=== PATIENT | male | born 1965 | race Two or more races ===

== ENCOUNTER 2020-06-30 12:23 | Emergency (ER) | payer MEDICAID ==
[~2020-06-30] VITALS: Ht 170.2 cm; Wt 88.5 kg
[2020-06-30] MEDS ORDERED: DILANTIN (12:29)
[2020-06-30] MEDS ORDERED: IV NORMAL SALINE 1000 ML BAG IV ONE (12:30)
[2020-06-30] MEDS ORDERED: LORAZEPAM 2 MG/1 ML VIAL IV ONE (12:30)
[2020-06-30] MEDS ORDERED: LORAZEPAM 2 MG/1 ML VIAL ONE (12:41)
[2020-06-30 13:02] LABS: BASOPHILS % (AUTO) 0.3 % (0.0-2.0); EOSINOPHILS # (AUTO) 0.1 K/uL (0.0-0.7); EOSINOPHILS % (AUTO) 1.2 % (0.0-7.0); HEMATOCRIT 44.6 % (36.7-47.1); HEMOGLOBIN 15.1 g/dL (12.5-16.3); LYMPHOCYTES # (AUTO) 1.5 K/uL (20.0-40.0); LYMPHOCYTES % (AUTO) 16.7 % (20.5-51.5); MEAN CORPUSCULAR HEMOGLOBIN 31.5 uug (23.8-33.4); MEAN CORPUSCULAR HGB CONC 34 g/dL (32.5-36.3); MEAN CORPUSCULAR VOLUME 92.9 fL (73.0-96.2); MONOCYTES # (AUTO) 0.6 K/uL (2.0-10.0); NEUTROPHILS # (AUTO) 6.8 K/uL (1.8-8.9); NEUTROPHILS % (AUTO) 74.8 % (38.5-71.5); PLATELET COUNT (AUTO) 284 K/uL (152-348); WHITE BLOOD COUNT (AUTO) 9.2 K/uL (3.6-10.2)
[2020-06-30 13:11] LABS: CARBON DIOXIDE 25 mmol/L (21-32); CHLORIDE 106 mmol/L (98-107); CREATININE 0.9 mg/dL (0.6-1.3); GLUCOSE 99 mg/dL (74-106); POTASSIUM 4.1 mmol/L (3.5-5.1); UREA NITROGEN, BLOOD 18 mg/dL (7-18)
[2020-06-30 13:16] LABS: PHENYTOIN (DILANTIN) 20.3 ug/mL (10.0-20.0); VALPROIC ACID 11 ug/mL (50-100)
--- NOTE | 2020-06-30 13:16 | NUR ---
PT IS IN ROOM #1B. DR KIMBALL EVALUATED THE PT.
[2020-06-30 13:17] LABS: ETHANOL < 3 MG/DL (0-0)
[2020-06-30] MEDS ORDERED: VALPROATE SODIUM 500 MG/5 ML VIAL IV ONE ×2 (13:30→13:39)
[2020-06-30 13:32] LABS: BILIRUBIN,DIRECT 0.1 mg/dL (0.0-0.2); BILIRUBIN,TOTAL 0.2 mg/dL (0.2-1.0); MAGNESIUM 1.9 mg/dL (1.8-2.4); PHOSPHOROUS 3.6 mg/dL (2.5-4.9); TOTAL PROTEIN, SERUM 7.1 g/dL (6.4-8.2)
--- NOTE | 2020-06-30 14:47 | NUR ---
PT WAS D/C'd TO HOME. D/C INSTRUCTIONS GIVEN TO THE PT BY DR KIMBALL. GAIT IS STABLE. NO S/S OF DISTRESS AT THIS TIME. PT DENIES PAIN, NO SOB. NO N/V.
[2020-06-30 14:50] VITALS: BP 136/78
== END 2020-06-30 14:50 | disposition home or self-care (01) ==
LOC: EDBD 12:23 → ER 12:23
DX: G40.909 Epilepsy, unspecified, not intractable, without status epilepticus (principal); S00.81XA Abrasion of other part of head, initial encounter; X58.XXXA Exposure to other specified factors, initial encounter; Y92.89 Other specified places as the place of occurrence of the external cause; R53.1 Weakness; Z20.822 Contact with and (suspected) exposure to COVID-19
CPT/HCPCS: 36415; 70450; 71045; 80048; 80076; 80164; 80185; 80320; 83735; 84100; 84484; 85025; 87426; 93005; 96365; 96375; 99291; J2060; J3490; 70030-TC; A4663; G0480; J7030